=== PATIENT | female | born 1970 | race Caucasian/White ===

== ENCOUNTER 2018-11-04 20:54 | Emergency (ER) | payer SELFPAY ==
[2018-11-04] MEDS ORDERED: OXYMETAZOLINE HCL 0.05% NASAL SPRAY 30 ML IEN ONE (21:16)
--- NOTE | 2018-11-04 21:16 | ED Physician Documentation ---
Epistaxis - HISTORIAN Historian: patient - HPI Stated Complaint: "My nose started bleeding about 2009 can't get it ready to bleed" Chief Complaint: Epistaxis Onset: other (earlier in day. and then about 845pm and then she states she took a "shot of whiskey" due to nerves. She has no injury ) Timing: intermittent Location: bilateral Severity: mild Associated Symptoms: denies: recent injury, recent illness, fever, chills, sweating, nausea Further Comments: yes (she reports earlier in the day she had a nose bleed and she did get the bleed to stop. She reports after working all day she had another and she could not get the nose bleed to stop. She did take a shot of whiskey before calling EMS. She has no injury.) - ROS MS/SKIN/LYMPH: denies: excessive bruising, bleeding from gums, bleeding from GI, bleeding from , swollen glands, joint pain EYES/ENT: none CVS/RESP: denies: chest pain NEURO/PSYCH: denies: dizziness, anxiety, depression - PAST HX Past History: previous nosebleeds Allergies/Adverse Reactions: Allergies Allergy/AdvReac Type Severity Reaction Status Date / Time No Known Allergies Allergy Verified 11/04/18 21:15 Home Medications: Ambulatory Orders Medication Instructions Recorded NK 11/04/18 - SOCIAL HX Smoking History: cigarettes Alcohol Use: none Drug Use: none - FAMILY HX Family History: No - VITAL SIGNS Vital Signs: Vital Signs Temp Pulse Resp BP Pulse Ox 98.1 F 85 18 179/100 100 11/04/18 21:07 11/04/18 21:07 11/04/18 21:07 11/04/18 21:07 11/04/18 21:07 - REVIEWED ASSESSMENTS Nursing Assessment Reviewed: Yes Vitals Reviewed: Yes Progress - Progress Progress: 2109: direct pressure for 10 min DG 2123: No change will admin Afrin DG 2146: No current bleeding DG Epistaxis Physical Exam - EXAM General Appearance: no acute distress, alert Nose: nml inspection, active bleeding (R), active bleeding (L) Head/Neck: atraumatic Eyes/Ears: eyes nml inspection Mouth: lips nml, gums nml, pharynx nml Neuro/Psych: oriented x3 Respiratory: no resp distress, chest non-tender, breath sounds normal CVS: reg rate & rhythm, heart sounds normal Abdomen: non-tender Skin: nml color, no skin rash Discharge Clincal Impression: Epistaxis Referrals: Primary Doctor,No [Primary Care Provider] - 2 Days Comments: 1. DO NOT BLOW or pick your nose 2. Clear and spit do not force coughing up phlegm 3. HOLD direct pressure for 10 min if bleed starts again 4. See PCP In 2-4 days 5. Return to ER for any increasing concerns Condition: Stable Disposition: 01 HOME, SELF-CARE Decision to Admit: NO Date of Decison to Admit: 11/04/18 Decision Time: 22:15
[2018-11-04 22:17] VITALS: BP 153/76
== END 2018-11-04 22:16 | disposition home or self-care (01) ==
LOC: ED 20:54
DX: R04.0 Epistaxis (principal)
CPT/HCPCS: 99282; 99283

== ENCOUNTER 2018-11-05 14:24 | Emergency (ER) | payer SELFPAY ==
--- NOTE | 2018-11-05 14:45 | ED Physician Documentation ---
Epistaxis - HISTORIAN Historian: patient, spouse - HPI Chief Complaint: Nosebleed Onset: hours Timing: still present Location: left Severity: severe Further Comments: yes (48 year old female presents with complaint of bilateral nose bleed; patient was seen in ER last night with nose bleed; returns today with complaint of intermittent nose bleed since leaving ER. States she has been using the afrin with no relief.) - ROS MS/SKIN/LYMPH: denies: excessive bruising EYES/ENT: none GI/: denies: black stool, problems urinating, other CVS/RESP: denies: chest pain, difficulty breathing, other NEURO/PSYCH: denies: dizziness, anxiety, depression, other - PAST HX Past History: previous nosebleeds Allergies/Adverse Reactions: Allergies Allergy/AdvReac Type Severity Reaction Status Date / Time No Known Allergies Allergy Verified 11/05/18 14:47 Home Medications: Ambulatory Orders Medication Instructions Recorded NK 11/04/18 - SOCIAL HX Smoking History: cigarettes - FAMILY HX Family History: No - VITAL SIGNS Vital Signs: Vital Signs Temp Pulse Resp BP Pulse Ox 153/76 11/04/18 22:16 - REVIEWED ASSESSMENTS Nursing Assessment Reviewed: Yes Vitals Reviewed: Yes Progress - Progress Progress: Rhino rocket place in left nare. Patient tolerated well Reviewed discharge instructions with patient. Stated "I will just come back here tomorrow", explained that she would need to see PCP, removal of packing was not considered an emergent ER visit. Verbalized understanding. Epistaxis Physical Exam - EXAM General Appearance: moderate distress Nose: nml inspection, mucosa nml, fresh clots (R), active bleeding (L), moderate. No: foreign body (R), foreign body (L) Head/Neck: atraumatic, thyroid nml Eyes/Ears: eyes nml inspection, PERRL, TM nml Mouth: lips nml, gums nml, pharynx nml Neuro/Psych: oriented x3, neuro intact, mood/affect nml, CN's nml as tested Respiratory: no resp distress, chest non-tender, breath sounds normal CVS: reg rate & rhythm, heart sounds normal, equal pulses, no murmur, no gallop, PMI nml, no JVD, no friction rub, 24 Abdomen: non-tender, no organomegaly Skin: nml color, no skin rash Discharge Clincal Impression: Epistaxis Referrals: Primary Doctor,No [Primary Care Provider] - 2 Days Additional Instructions: Packing was placed in the left nare. Leave it in place for 24 hours. Make an appointment with your primary care doctor to have the packing removed tomorrow. If the right nare starts to bleed; hold firm pressure for 20 minutes. Hold your aspirin for 7 days. Moisturize the inside of the nose with vaseline, lubriderm or aquafor Use a cool mist humidifier where you sleep Condition: Stable Disposition: 01 HOME, SELF-CARE Decision to Admit: NO Decision Time: 14:45
[2018-11-05 14:47] VITALS: BP 176/87
== END 2018-11-05 14:49 | disposition home or self-care (01) ==
LOC: ED 14:24
DX: R04.0 Epistaxis (principal)
CPT/HCPCS: 30901; 99282; 99284